=== PATIENT | male | born 1945 | race Two or more races ===

== ENCOUNTER 2020-07-28 22:15 | Emergency (ER) | payer OTHER ==
[~2020-07-28] VITALS: Ht 172.7 cm; Wt 79.4 kg
== END 2020-07-29 01:58 | disposition designated cancer center or children's hospital (05) ==
LOC: ER 22:15
DX: S06.6X0A Traumatic subarachnoid hemorrhage without loss of consciousness, initial encounter (principal); S50.01XA Contusion of right elbow, initial encounter; M54.2 Cervicalgia; R40.4 Transient alteration of awareness; W01.198A Fall on same level from slipping, tripping and stumbling with subsequent striking against other object, initial encounter; Y93.89 Activity, other specified; Y92.018 Other place in single-family (private) house as the place of occurrence of the external cause; Y99.8 Other external cause status; Z03.818 Encounter for observation for suspected exposure to other biological agents ruled out

== ENCOUNTER 2021-12-24 15:32 | Inpatient (IN) | payer OTHER ==
[~2021-12-24] VITALS: Ht 175.3 cm; Wt 83.9 kg
[2021-12-24] MEDS ORDERED: LIPITOR20 MG PO (15:57)
[2021-12-24] MEDS ORDERED: COZAAR100 MG PO (15:57)
[2021-12-24] MEDS ORDERED: KEPPRA500 MG PO (15:57)
== END 2021-12-26 22:22 | disposition home or self-care (01) | DRG 195 ==
LOC: ER 15:32 → MEDJ 12-25 03:59
PROVIDERS: ADMIT Internal Medicine; ATTEND Internal Medicine
PROC: BW28ZZZ Computerized Tomography (CT Scan) of Head (ICD-10-PCS; 2021-12-24)
PROC: 3E0F7GC Introduction of Other Therapeutic Substance into Respiratory Tract, Via Natural or Artificial Opening (ICD-10-PCS; principal; 2021-12-25)
PROC: 4A033R1 Measurement of Arterial Saturation, Peripheral, Percutaneous Approach (ICD-10-PCS; 2021-12-25)
PROC: BW28ZZZ Computerized Tomography (CT Scan) of Head (ICD-10-PCS; 2021-12-25)
DX: J10.1 Influenza due to other identified influenza virus with other respiratory manifestations (principal); Z20.822 Contact with and (suspected) exposure to COVID-19
CPT/HCPCS: 70496